=== PATIENT | male | born 1940 | race Caucasian/White ===

== ENCOUNTER 2017-05-30 13:48 | Emergency (ER) | payer MEDICARE ==
[~2017-05-30] VITALS: Ht 172.7 cm; Wt 125.5 kg
[2017-05-30 13:54] VITALS: BP 177/84; PULSE 80; RESP 18; O2SAT 97
--- NOTE | 2017-05-30 14:41 | DRSVH ---
PROCEDURE: CT BRAIN WITHOUT CONTRAST ([id number]) INDICATIONS: fell/hit head/no loc/not on blood thinners TECHNIQUE: Noncontrast 4.5 mm thick angled axial sections acquired from the foramen magnum to the vertex, with c oronal reformats. COMPARISON: None. FINDINGS: Image quality: Excellent. CSF spaces: Basal cisterns are patent. No extra-axial fluid collections. Ventricles are normal in size and shape. Brain: No midline shift. No intracranial masses or hemorrhage. Mcgrath-white matter interface is norm al. Right basal ganglia perivascular space or benign lacunar infarction. Skull and face: Calvarium and visualized facial bones are intact, without suspicious lesions. Sinuses: Visualized sinuses and mastoids are clear. IMPRESSION: No CT evidence of acute intracranial pathology. Dictated by: Richard Nguyễn M.D. on 05/30/2017 at 14:37 Approved by: Richard Nguyễn M.D. on 05/30/2017 at 14:39
--- NOTE | 2017-05-30 14:52 | ED.REPORT ---
HPI-Trauma Minor / Fall Date of Service May 30, 2017 ED Provider: Karolina Puente History of Present Illness: carrying brush and was pulling a vine, it let go and fell back and hit head on gravel in driveway. No LOC. primary care is Dr. Vasquez at [facility] in [place]. no vomiting some nausea. mild dizziness. denies pain. Nursing Notes Stated Complaint: GLF Chief Complaint: Multiple Trauma/Fall Nursing Notes Reviewed: Yes Allergies: Coded Allergies: No Known Allergies (Unverified Allergy, Unknown, 05/30/17) General Time Seen by MD: 14:50 Chief Complaint Fall Hx Obtained From: Patient Onset Occurred: Just prior to arrival Symptom Duration: Since onset Caused by: Accidental Context: Occurred at: Home injury Risk Factors IC Bleed Risk Stratification Age (<1 yr or >60 yrs) Risk factors reviewed Nexus C-Spine Criteria No post midline tendernes, Not intoxicated, Normal level or alertness, No focal neuro deficits, No distracting injuries Head CT Imaging Non Contrast CT Indicated For: >/= 60 yrs Age Past Medical History Past Medical History Reports: Diabetes mellitus, Hypertension, Denies: Asthma Past Surgical History denies Smoking History Former Smoker (quit 40 years ago) Social History Drug Use: Denies drug use Other Social History: Occupation lives in [place] with Review of Systems Basic Review of Systems Cardiovascular: No chest pain, No dyspnea on exertion, No orthopnea, No parox noct dyspnea, No palpitations Hematologic: No bleeding, No bruising Psychiatric: Normal thought content Physical Exam Initial Vital Signs Vital Signs (First) Date Time Temp Pulse Resp B/P Pulse Ox O2 Delivery O2 Flow Rate FiO2 05/30/17 13:54 36.4 80 18 177/84 97 Room Air Initial VS: Reviewed, Vital signs normal Head / Eyes: Atraumatic, Normocephalic, PERRL ENT: Mucous membranes moist, Conjunctiva normal, No scleral icterus Respiratory: Breath sounds normal, Clear to auscultation, No respiratory distress Cardiovascular: Regular rate & rhythm, Heart sounds normal, Intact distal pulses Abdomen / GI: Soft, Non-tender, No guarding, No rebound, No distention Back: No CVA tenderness Lymphatic: No lymphadenopathy Extremities: Vascular intact, Neuro intact, No swelling, No tenderness Skin: Warm, Dry, No cyanosis Neurologic: Alert, Oriented, Nonfocal Psychiatric: Mood/affect normal, Behavior normal, Normal thought content General/Constitutional: Awake, Alert, No acute distress, Well appearing, Well developed, Well hydrated, Well nourished, Cooperative, Not toxic appearing Neck: Atraumatic, Supple, No meningismus, Full range of motion, No adenopathy, No swelling, Non-tender, No midline vertebral tend, No masses, No crepitus, No JVD, No carotid bruit, Thyroid NL, No tracheal deviation Head / Eyes: Atraumatic, Normocephalic, PERRL, EOMI, No nystagmus contusion on posterior head about dime size. No break in the skin. ENT: Atraumatic, Airway patent, Mucous membranes moist Respiratory / Chest: Atraumatic, Breath sounds NL, Breath sounds = bilat, No respiratory distress Cardiovascular: Heart rate NL, Regular rhythm, Heart sounds NL Abdomen: Atraumatic, Soft, Non-tender Interpretation & Diagnostics CT Head Interpretation ROCEDURE: CT BRAIN WITHOUT CONTRAST ([id number]) INDICATIONS: fell/hit head/no loc/not on blood thinners TECHNIQUE: Noncontrast 4.5 mm thick angled axial sections acquired from the foramen magnum to the vertex, with coronal reformats. COMPARISON: None. FINDINGS: Image quality: Excellent. CSF spaces: Basal cisterns are patent. No extra-axial fluid collections. Ventricles are normal in size and shape. Brain: No midline shift. No intracranial masses or hemorrhage. Mcgrath-white matter interface is normal. Right basal ganglia perivascular space or benign lacunar infarction. Skull and face: Calvarium and visualized facial bones are intact, without suspicious lesions. Sinuses: Visualized sinuses and mastoids are clear. IMPRESSION: No CT evidence of acute intracranial pathology. Dictated by: Richard Nguyễn M.D. on 05/30/2017 at 14:37 Re-Eval/Medical Decision Med Decision/Clinical Course 77 year old male presents to the ER for evualation after ground level fall at home earlier today. Patient denies pain or vomiting. Does report occasional dizziness and nausea. Denies neck pain. Patient has full range of motion of neck and head. Head CT is normal. No sign of head bleed or skull fracture Discharge & Departure Impression: Primary Impression: Concussion Encounter type: initial encounter Loss of consciousness presence/duration: without LOC Qualified Code: S06.0X0A - Concussion without loss of consciousness, initial encounter Additional Impression: Fall Encounter type: initial encounter Qualified Code: W19.XXXA - Unspecified fall, initial encounter Disposition: Home Patient Instructions: Concussion (ED), Fall Prevention (ED), Fall Prevention for Older Adults (DC) Additional Instructions: The head CT is normal. You have a bruise on the back of your head. There was no break in the skin. The exam is reassuring. No driving for 2 days, note provided. The occasional dizziness that you are experiencing should fade with time. No driving until that happens. Please follow with primary care as needed. Referrals: OTHER,PHYSICIAN (PCP) (Family) EDSupervising Provider for APC: Rubens Gamez MD copies to: OTHER,PHYSICIAN Karolina Puente May 30, 2017 14:52
[2017-05-30 15:17] VITALS: BP 123/70; PULSE 57; RESP 18; O2SAT 95
== END 2017-05-30 15:15 | disposition home or self-care (01) ==
LOC: SED 13:48
DX: S06.0X0A Concussion without loss of consciousness, initial encounter (principal); W01.198A Fall on same level from slipping, tripping and stumbling with subsequent striking against other object, initial encounter; Y93.89 Activity, other specified; Y92.019 Unspecified place in single-family (private) house as the place of occurrence of the external cause; Y99.8 Other external cause status; E11.9 Type 2 diabetes mellitus without complications; I10 Essential (primary) hypertension; Z87.891 Personal history of nicotine dependence